=== PATIENT | male | born 1965 | race Caucasian/White ===

== ENCOUNTER 2024-08-10 19:23 | Observation (INO) | payer SELFPAY ==
[2024-08-10 20:14] LABS: #Basophils Less than 0.03 10x3/uL (0.0-0.2); %Basophils 0.2 % (0.0-1.0); %Eosinophils 0.5 % (0.0-10.0); %Monocytes 7.2 % (0.0-10.0); %Neutrophils 73.8 % (42.0-75.0); Hematocrit 44.3 % (42.0-52.0); Hemoglobin 15.5 g/dL (14.0-18.0); Mean Corpuscular Hemoglobin 30.9 pg (27.0-31.0); Mean Corpuscular Volume 88.2 fL (78.0-98.0); Mean Platelet Volume 10.3 fL (7.4-10.4); Platelet Count 215 10x3/uL (130-400); RBC Distribution Width 12.4 % (11.5-14.5); Red Blood Cell (RBC) Count 5.02 mill/uL (4.70-6.10)
[2024-08-10 20:29] LABS: Prothrombin Time 13.3 sec (12.0-14.7)
[2024-08-10 20:30] LABS: ALT (SGPT) 20 U/L (Less than 45); AST (SGOT) 30 U/L (11-34); Albumin 4.5 g/dL (3.1-4.5); Alkaline Phosphatase 91 U/L (40-110); Anion Gap 15 mmol/L (10-20); BUN (Urea Nitrogen) 9 mg/dL (8.4-25.7); CK (CPK) 79 U/L (30-200); Calc. Creatinine Clearance 0 mL/min (70-130); Calcium 9.3 mg/dL (7.8-10.44); Carbon Dioxide 19 mmol/L (22-29); Chloride 107 mmol/L (98-107); Estimated GFR 77; Globulin 2.8 g/dL (2.4-3.5); Glucose 158 mg/dL (70-105); PTT 26.5 sec (22.9-36.1); Potassium 2.8 mmol/L (3.5-5.1); Protein, Total 7.3 g/dL (6.0-8.3); Sodium 138 mmol/L (136-145)
[2024-08-10 20:36] LABS: Troponin I Less than 0.010 ng/mL (< 0.028)
[2024-08-10 20:40] LABS: Bacteria/HPF None Seen HPF (None Seen); Bilirubin Negative (Negative); Blood, Urine Negative (Negative); CAUTI Indications for Culture Pelvic or flank pain; Clarity Clear (Clear); Glucose, Urine (Dipstick) Normal (Negative); Ketone, Urine Negative (Negative); Leukocyte Negative Leu/uL (Negative); Nitrite Negative (Negative); Protein, Urine (Dipstick) Negative (Neg-Trace); RBC/HPF 0-3 HPF (0-3); Specific Gravity, Urine 1.006 (1.002-1.036); Squamous Epithelial None Seen HPF (0-3); WBC/HPF 0-3 HPF (0-3); pH, Urine 6.5 (5.0-9.0)
[2024-08-10 20:42] LABS: Urine Culture Reflex No No
[2024-08-10 21:39] LABS: Amphetamine Not Detected (NotDetected); Barbiturates Screen Not Detected (NotDetected); Benzodiazepine Screen Not Detected (NotDetected); Cocaine Metabolite Screen Not Detected (NotDetected); Methadone Not Detected (NotDetected); Methamphetamine Not Detected (NotDetected); Opiate Screen Not Detected (NotDetected); Oxycodone Screen Not Detected (NotDetected); Phencyclidine (PCP) Not Detected (NotDetected); THC/Cannabinoid Screen Detected (NotDetected); Tricyclic Screen Not Detected (NotDetected)
[2024-08-10 21:41] LABS: Acetaminophen Less than 10 mcg/mL (Less than 10); Alcohol Less than 10.0 mg/dL (Less than 10); Salicylate Less than 8.0 mg/dL (Less than 8.0)
[2024-08-10] MEDS ORDERED: Potassium Chloride 20 MEQ (100 mL) BAG ONE (22:17)
[2024-08-10] MEDS ORDERED: Potassium Chloride 20 MEQ TAB ONE (22:17)
[2024-08-10] MEDS ORDERED: Aspirin 325 MG TAB ONE (23:20)
[2024-08-10] MEDS ORDERED: Aspirin Chewable 81 MG TAB ONE (23:22)
[2024-08-10] MEDS ORDERED: Nitroglycerin 0.4 MG TAB (25 Tab Bottle) SL PRN (23:24)
[2024-08-10] MEDS ORDERED: Acetaminophen 325 MG TAB PO PRN (23:25)
[2024-08-10] MEDS ORDERED: Calcium Carbonate 500 MG ChewTAB PO PRN (23:25)
[2024-08-10] MEDS ORDERED: Ondansetron ODT 4 MG TAB PO PRN (23:25)
[2024-08-10] MEDS ORDERED: Ondansetron PF 4 MG/2 ML Vial IVP PRN (23:25)
[2024-08-10] MEDS ORDERED: Acetaminophen 650 MG Suppository PR PRN (23:25)
[2024-08-10] MEDS ORDERED: Electrolyte Replacement Protocol 1 EACH FS PRN (23:27)
[2024-08-11 00:52] LABS: Troponin I Less than 0.010 ng/mL (< 0.028)
[2024-08-11 01:33] VITALS: BMI 22.8
[2024-08-11 05:31] LABS: #Basophils Less than 0.03 10x3/uL (0.0-0.2); %Basophils 0.4 % (0.0-1.0); %Eosinophils 1.3 % (0.0-10.0); %Lymphocytes 27.6 % (21.0-51.0); %Monocytes 11.2 % (0.0-10.0); %Neutrophils 59.1 % (42.0-75.0); Hematocrit 43.3 % (42.0-52.0); Hemoglobin 15.1 g/dL (14.0-18.0); Mean Corpuscular HGB CONC 34.9 g/dL (32.0-36.0); Mean Corpuscular Hemoglobin 31.5 pg (27.0-31.0); Mean Corpuscular Volume 90.4 fL (78.0-98.0); Mean Platelet Volume 10.6 fL (7.4-10.4); Platelet Count 206 10x3/uL (130-400); RBC Distribution Width 12.4 % (11.5-14.5); Red Blood Cell (RBC) Count 4.79 mill/uL (4.70-6.10)
[2024-08-11 06:14] LABS: Anion Gap 16 mmol/L (10-20); BUN (Urea Nitrogen) 7 mg/dL (8.4-25.7); Calc. Creatinine Clearance 105 mL/min (70-130); Carbon Dioxide 21 mmol/L (22-29); Cardiac Risk 4.3 (Less than 4.5); Chloride 109 mmol/L (98-107); Cholesterol 156 mg/dl (< 200 Desired); Estimated GFR 101; Glucose 101 mg/dL (70-105); HDL Cholesterol 36 mg/dL (>60 Neg Risk); LDL Cholesterol, Calculated 100 mg/dL; Potassium 3.3 mmol/L (3.5-5.1); Sodium 143 mmol/L (136-145); Triglycerides 99 mg/dL (Less than 150)
[2024-08-11 06:17] LABS: Troponin I Less than 0.010 ng/mL (< 0.028)
[2024-08-11] MEDS ORDERED: Magnesium 2 GM/50 ML(in water) 2 GM in Premix 1 BAG IVPB SCH (08:00)
[2024-08-11] MEDS: Potassium Chloride 20 MEQ TAB PO SCH (08:19)
[2024-08-11] MEDS: Famotidine/PF 20 mg/2ml Vial SLOW IVP SCH (08:19)
[2024-08-11] MEDS: Famotidine 20 MG TAB PO SCH (08:19)
[2024-08-11] MEDS ORDERED: Regadenoson 0.4 MG/5 ML SYRINGE ONE (09:54)
[2024-08-11 12:20] VITALS: TEMP 98
[2024-08-11 16:23] VITALS: BP 124/80
[2024-08-11 17:12] VITALS: BMI 22.8
== END 2024-08-11 18:51 | disposition home or self-care (01) ==
LOC: ERS 19:23 → OBS 23:30
PROVIDERS: ADMIT Student in an Organized Health Care Education/Training Program; ATTEND Internal Medicine
DX: R07.89 Other chest pain (principal); E87.6 Hypokalemia; Z88.5 Allergy status to narcotic agent; I10 Essential (primary) hypertension; F31.9 Bipolar disorder, unspecified; F41.9 Anxiety disorder, unspecified; F90.9 Attention-deficit hyperactivity disorder, unspecified type; F12.90 Cannabis use, unspecified, uncomplicated; Z79.899 Other long term (current) drug therapy
CPT/HCPCS: 36415; 36416; 70450; 71045; 78452; 80048; 80053; 80061; 80306; 80307; 81001; 82550; 83735; 83880; 84484; 85025; 85610; 85730; 87428; 93005; 93017; 96374; A9502; G0378; J2785; J3475; J3480; J3490